=== PATIENT | male | born 1985 | race Caucasian/White ===

== ENCOUNTER 2018-04-10 15:38 | Emergency (ER) | payer SELFPAY | END 2018-04-10 16:01 | disposition home or self-care (01) | LOC: SCSER 15:38 | DX: K04.7 Periapical abscess without sinus (principal); Z87.891 Personal history of nicotine dependence | CPT/HCPCS: 99282 ==

== ENCOUNTER 2019-08-23 03:32 | Emergency (ER) | payer SELFPAY | END 2019-08-23 04:11 | disposition home or self-care (01) | LOC: ERS 03:32 | DX: S61.211A Laceration without foreign body of left index finger without damage to nail, initial encounter (principal); Z87.891 Personal history of nicotine dependence; W26.0XXA Contact with knife, initial encounter | CPT/HCPCS: 99281 ==